=== PATIENT | male | born 1970 | race Two or more races ===

== ENCOUNTER 2022-11-14 17:24 | Emergency (ER) | payer SELFPAY ==
[~2022-11-14] VITALS: Ht 177.8 cm; Wt 94.4 kg
[2022-11-14] MEDS ORDERED: HYDROcodone-ACET 5/325MG TAB PO ONE (18:45)
[2022-11-14] MEDS ORDERED: BACDST PO (18:45)
[2022-11-14] MEDS ORDERED: IBUP800T27 PO (18:45)
[2022-11-14 18:59] VITALS: BP 146/79
== END 2022-11-14 19:01 | disposition home or self-care (01) ==
LOC: ER 17:24
DX: S20.461A Insect bite (nonvenomous) of right back wall of thorax, initial encounter (principal); E11.9 Type 2 diabetes mellitus without complications; W57.XXXA Bitten or stung by nonvenomous insect and other nonvenomous arthropods, initial encounter; Y93.89 Activity, other specified; Y92.89 Other specified places as the place of occurrence of the external cause; Y99.8 Other external cause status